=== PATIENT | male | born 1995 | race Caucasian/White ===

== ENCOUNTER 2019-12-02 20:52 | Emergency (ER) | payer OTHER ==
[~2019-12-02] VITALS: Ht 185.4 cm; Wt 78.5 kg
[~2019-12-02 20:52] MED LIST: LEXAPRO20 MG PO; TRAZODONE 150150 M1 PO; VIMPAT50 MG PO
[2019-12-02] MEDS ORDERED: TEGRETOL200 MG (21:03)
[2019-12-02] MEDS ORDERED: IBUPROFEN 600600 M1 PO (23:09)
[2019-12-03] VITALS: BP 120/76
== END 2019-12-02 23:54 | disposition home or self-care (01) ==
LOC: ER 20:52
DX: S00.83XA Contusion of other part of head, initial encounter (principal); Z91.011 Allergy to milk products; Z88.0 Allergy status to penicillin; Z91.018 Allergy to other foods; Z79.899 Other long term (current) drug therapy; Y04.0XXA Assault by unarmed brawl or fight, initial encounter; Y93.89 Activity, other specified; Y92.89 Other specified places as the place of occurrence of the external cause; Y99.9 Unspecified external cause status

== ENCOUNTER → 2020-01-26 | Outpatient (CLI) | payer OTHER ==
[~2020-01-26] MED LIST changes: +IBUPROFEN 600600 M1 PO; +TEGRETOL200 MG
== END ==
LOC: MRI 09:44
PROVIDERS: ATTEND Psychiatry & Neurology Neuromuscular Medicine
DX: G80.9 Cerebral palsy, unspecified (principal); R56.9 Unspecified convulsions

== ENCOUNTER → 2020-08-10 | Outpatient (CLI) | payer OTHER ==
[2020-08-10 12:31] LABS: URINE BILIRUBIN NEGATIVE (Negative); URINE BLOOD NEGATIVE (Negative); URINE CLARITY CLEAR; URINE COLOR YELLOW; URINE GLUCOSE-RANDOM* NEGATIVE (Negative); URINE KETONES NEGATIVE (Negative); URINE LEUKOCYTES-REFLEX NEGATIVE (Negative); URINE NITRITE-REFLEX NEGATIVE (Negative); URINE PROTEIN (DIPSTICK) NEGATIVE (Negative); URINE UROBILINOGEN 0.2 E.U./dl (0.2-1.0)
[2020-08-10 12:32] LABS: ABSOLUTE NEUTROPHILS 4.3 thou/uL (1.4-8.2); BASOPHILS 0.7 % (0.0-2.0); EOSINOPHILS 1.4 % (0.0-3.0); HEMATOCRIT 46.3 % (42.0-52.0); HEMOGLOBIN 15.9 gm/dL (14.0-18.0); LYMPHOCYTES 29.5 % (24.0-44.0); MCH 28.7 pg (26.0-34.0); MCHC 34.4 g/dL (28.0-37.0); MCV 83.4 fL (80.0-100.0); MONOCYTES 6.3 % (1.0-8.0); PLATELET COUNT 257 thou/uL (150-400); POLYS 62.1 % (36.0-66.0); RBC 5.56 mil/uL (4.50-6.00); RDW 12.9 % (10.5-14.5); WBC 6.9 thou/uL (4.0-11.0)
[2020-08-10 12:46] LABS: ALBUMIN 4.4 g/dL (3.4-5.0); CREATININE 1.1 mg/dL (0.7-1.3); POTASSIUM 4.5 mmol/L (3.5-5.1); TOTAL BILIRUBIN 0.6 mg/dL (0.2-1.0); TOTAL PROTEIN 7.4 g/dL (6.4-8.2)
== END ==
LOC: LAB 11:48
PROVIDERS: ATTEND Nurse Practitioner
DX: Z00.00 Encounter for general adult medical examination without abnormal findings (principal)

== ENCOUNTER → 2020-09-20 | Outpatient (CLI) | payer OTHER ==
[2020-09-20 15:44] LABS: ABSOLUTE NEUTROPHILS 6.5 thou/uL (1.4-8.2); BASOPHILS 0.6 % (0.0-2.0); EOSINOPHILS 0.6 % (0.0-3.0); HEMATOCRIT 45.6 % (42.0-52.0); HEMOGLOBIN 15.7 gm/dL (14.0-18.0); LYMPHOCYTES 24.3 % (24.0-44.0); MCH 28.5 pg (26.0-34.0); MCHC 34.4 g/dL (28.0-37.0); MONOCYTES 5.8 % (1.0-8.0); PLATELET COUNT 275 thou/uL (150-400); POLYS 68.7 % (36.0-66.0); RBC 5.49 mil/uL (4.50-6.00); RDW 12.8 % (10.5-14.5); URINE BILIRUBIN NEGATIVE (Negative); URINE BLOOD NEGATIVE (Negative); URINE CLARITY CLEAR; URINE COLOR YELLOW; URINE GLUCOSE-RANDOM* NEGATIVE (Negative); URINE KETONES TRACE (Negative); URINE LEUKOCYTES-REFLEX NEGATIVE (Negative); URINE NITRITE-REFLEX NEGATIVE (Negative); URINE PROTEIN (DIPSTICK) NEGATIVE (Negative); WBC 9.4 thou/uL (4.0-11.0)
[2020-09-20 16:00] LABS: % SATURATION 31 % (20-39); IRON 99 ug/dL (65-175); TIBC 322 ug/dL (250-450)
[2020-09-20 16:01] LABS: ALBUMIN 4.2 g/dL (3.4-5.0); POTASSIUM 3.9 mmol/L (3.5-5.1); TOTAL BILIRUBIN 0.5 mg/dL (0.2-1.0); TOTAL PROTEIN 7.5 g/dL (6.4-8.2)
== END ==
LOC: LAB 14:48
PROVIDERS: ATTEND Family Medicine
DX: R53.83 Other fatigue (principal)

== ENCOUNTER → 2020-12-21 | Outpatient (CLI) | payer OTHER ==
[2020-12-21 12:20] LABS: URINE BILIRUBIN NEGATIVE (Negative); URINE BLOOD NEGATIVE (Negative); URINE CLARITY CLEAR; URINE COLOR YELLOW; URINE GLUCOSE-RANDOM* NEGATIVE (Negative); URINE KETONES NEGATIVE (Negative); URINE LEUKOCYTES NEGATIVE (Negative); URINE NITRITE NEGATIVE (Negative); URINE PROTEIN (DIPSTICK) NEGATIVE (Negative); URINE SPECIFIC GRAVITY >= 1.030 (1.005-1.035)
[2020-12-21 12:26] LABS: ABSOLUTE NEUTROPHILS 5.1 thou/uL (1.4-8.2); BASOPHILS 0.8 % (0.0-2.0); EOSINOPHILS 0.8 % (0.0-3.0); HEMATOCRIT 45.8 % (42.0-52.0); HEMOGLOBIN 15.6 gm/dL (14.0-18.0); LYMPHOCYTES 20.4 % (24.0-44.0); MCH 28.5 pg (26.0-34.0); MCHC 33.9 g/dL (28.0-37.0); MCV 84.1 fL (80.0-100.0); MONOCYTES 5.9 % (1.0-8.0); PLATELET COUNT 274 thou/uL (150-400); POLYS 72.1 % (36.0-66.0); RBC 5.45 mil/uL (4.50-6.00); RDW 13.2 % (10.5-14.5)
[2020-12-21 12:37] LABS: % SATURATION 49 % (20-39); IRON 157 ug/dL (65-175); TIBC 319 ug/dL (250-450)
[2020-12-21 12:38] LABS: ALBUMIN 4.2 g/dL (3.4-5.0); CREATININE 1.2 mg/dL (0.7-1.3); POTASSIUM 3.9 mmol/L (3.5-5.1); TOTAL BILIRUBIN 0.9 mg/dL (0.2-1.0); TOTAL PROTEIN 7.6 g/dL (6.4-8.2)
== END ==
LOC: RAD 10:32
PROVIDERS: ATTEND Nurse Practitioner
DX: R53.83 Other fatigue (principal)

== ENCOUNTER → 2021-03-25 | Outpatient (CLI) | payer OTHER ==
[2021-03-25 14:09] LABS: ABSOLUTE NEUTROPHILS 6.3 thou/uL (1.4-8.2); BASOPHILS 0.8 % (0.0-2.0); EOSINOPHILS 0.9 % (0.0-3.0); HEMATOCRIT 47.6 % (42.0-52.0); HEMOGLOBIN 16.1 gm/dL (14.0-18.0); LYMPHOCYTES 21.7 % (24.0-44.0); MCHC 33.9 g/dL (28.0-37.0); MCV 82.7 fL (80.0-100.0); MONOCYTES 4.9 % (1.0-8.0); PLATELET COUNT 314 thou/uL (150-400); POLYS 71.7 % (36.0-66.0); RBC 5.76 mil/uL (4.50-6.00); RDW 12.8 % (10.5-14.5); WBC 8.8 thou/uL (4.0-11.0)
[2021-03-25 14:45] LABS: ALBUMIN 4.1 g/dL (3.4-5.0); CREATININE 1.1 mg/dL (0.7-1.3); POTASSIUM 4.2 mmol/L (3.5-5.1); TOTAL BILIRUBIN 0.5 mg/dL (0.2-1.0); TOTAL PROTEIN 7.7 g/dL (6.4-8.2)
== END ==
LOC: LAB 13:18
PROVIDERS: ATTEND Psychiatry & Neurology Neuromuscular Medicine
DX: G40.909 Epilepsy, unspecified, not intractable, without status epilepticus (principal); F41.9 Anxiety disorder, unspecified; R53.83 Other fatigue

== ENCOUNTER → 2021-06-21 | Outpatient (CLI) | payer OTHER ==
--- NOTE | ~2021-06-21 | EKG ---
[address] [address] ELECTROCARDIOGRAM REPORT Name: ZANDER KELLER Room #: REG ELEONORA Shane#: [id number] Admission: 06/21/21 Attend Phys: Vinicio Saxena MD Discharge: Date of : [birth year] Report #: [id number] [facility] Test Date: 2021-07-01 Test Time: 16:05:07 Pat Name: ZANDER KELLER Department: Room: Gender: [employer] Inspector: [facility] : 1995 Requested By: Vinicio Saxena Order Number: [id number] MD: Measurements Intervals [place] Rate: 66 P: 1 ME: 192 QRS: 38 QRSD: 92 T: 35 QT: 362 QTc: 380 Interpretive Statements Sinus rhythm No previous ECG available for comparison [email or web address] By: [id number] Epiphany MD Sharda /EPI
== END ==
LOC: GI 07:55
PROVIDERS: ATTEND Psychiatry & Neurology Neuromuscular Medicine
DX: G40.909 Epilepsy, unspecified, not intractable, without status epilepticus (principal); F41.9 Anxiety disorder, unspecified; R53.83 Other fatigue